=== PATIENT | male | born 1960 | race African-American/Black ===

== ENCOUNTER 2021-01-13 09:07 | Observation (INO) ==
[2021-01-13] MEDS ORDERED: CeFAZolin Syr 2,000MG/20 ML 2,000 MG/20 ML SYRINGE IVPB ONE (09:36)
[2021-01-13] MEDS ORDERED: SODIUM CHLORIDE 0.9% IVPB ONE (09:37)
[2021-01-13] MEDS ORDERED: GENTAMICIN IVPB ONE (09:37)
[2021-01-13] MEDS ORDERED: Ringers Solution, Lactated 1,000 ML IVC SCH ×2 (09:45→10:45)
[2021-01-13] MEDS ORDERED: Ondansetron 4 MG/2 ML VIAL IVP PRN ×2 (10:34→22:23)
[2021-01-13] MEDS ORDERED: *HR* FentaNYL (PF) 100 MCG/2 ML VIAL IVP PRN (10:34)
[2021-01-13] MEDS ORDERED: *HR* FentaNYL (PF) 100 MCG/2 ML VIAL ONE ×2 (10:53→12:34)
[2021-01-13] MEDS ORDERED: *HR* Midazolam HCl 2 MG/2 ML VIAL ONE ×2 (10:54→12:16)
[2021-01-13] MEDS ORDERED: Lidocaine -MPF 2% 2 ML VIAL ONE (10:54)
[2021-01-13] MEDS ORDERED: *HR* Propofol 200 MG/20 ML VIAL IVP ONE (10:54)
[2021-01-13] MEDS ORDERED: Ondansetron 4 MG/2 ML VIAL ONE (10:54)
[2021-01-13] MEDS ORDERED: ROPIVACAINE/PF/NS 0.25% 1 EACH SYRINGE INTRAART ONE (11:37)
[2021-01-13] MEDS ORDERED: Ropivacaine/PF 0.5% 30 ML VIAL ONE (11:37)
[2021-01-13] MEDS ORDERED: Acetaminophen IV 0 MG/0 ML BAG IVPB ONE (11:44)
[2021-01-13] MEDS ORDERED: Vancomycin 1,000 MG VIAL ONE ×3 (11:58→12:45)
[2021-01-13] MEDS ORDERED: Tobramycin Sulf (Sterile) 1.2 GM VIAL ONE ×2 (12:00→12:45)
[2021-01-13] MEDS ORDERED: TOTAL JOINT MIXTURE (100ML) INTRAART ONE (12:05)
[2021-01-13] MEDS ORDERED: Povidone-Iodine 45 ML, Sodium Chloride IRRigation 1,000 ML IR ONE (12:05)
[2021-01-13] MEDS ORDERED: *HR* Rocuronium Bromide 50 MG/5 ML VIAL ONE ×2 (12:38→15:35)
[2021-01-13] MEDS ORDERED: Albumin Human 5% 12.5 GM/250 ML IV.SOLN ONE (12:43)
[2021-01-13] MEDS ORDERED: Tranexamic Acid 1,000 MG/10 ML VIAL ONE (13:03)
[2021-01-13] MEDS ORDERED: Dexmedetomidine HCl 400 MCG/100 ML MLS IVC ONE (13:23)
[2021-01-13] MEDS ORDERED: Lidocaine -MPF 4% 5 ML AMPUL ONE (14:06)
[2021-01-13 15:08] LABS: Source,Synovial Fluid left knee
[2021-01-13] MEDS ORDERED: *HR* Remifentanil 2 MG VIAL IVP ONE (15:14)
[2021-01-13 16:47] LABS: Appearance,Synovial Fluid Hazy (Clear-Hazy); Color,Synovial Fluid Red (Straw)
[2021-01-13] MEDS ORDERED: EPHEDrine 50 MG/ML VIAL ONE (16:56)
[2021-01-13] MEDS ORDERED: *HR* HYDROmorphone (PF) 1 MG/ML SYRINGE IVP PRN (21:11)
[2021-01-13] MEDS ORDERED: *HR* HYDROmorphone 2 MG/ML SYRINGE IVP ONE (21:12)
[2021-01-13] MEDS: *HR* FentaNYL (PF) 100 MCG/2 ML VIAL IVP PRN ×2 (21:20→21:25)
[2021-01-13] MEDS ORDERED: Naloxone 0.4 MG/ML INJ IVP PRN (22:23)
[2021-01-13] MEDS ORDERED: *HR* Promethazine 25 MG/ML VIAL IM PRN (22:23)
[2021-01-13] MEDS ORDERED: MOM Conc 10 ML UD.LIQ PO PRN (22:23)
[2021-01-13] MEDS ORDERED: Sennosides 8.6 MG TABLET PO PRN (22:23)
[2021-01-13] MEDS: *HR* OxyCODONE Immed Rel 5 MG TABLET PO PRN (22:55)
[2021-01-13] MEDS: carvediloL 25 MG TABLET PO SCH (23:12)
[2021-01-14] MEDS: Ketorolac 30 MG/ML VIAL IVP SCH ×3 (00:13→13:12)
[2021-01-14] MEDS: CeFAZolin 2 GM/120 ML BAG IVPB SCH ×3 (00:14→16:37)
[2021-01-14 01:38] LABS: Hematocrit 38.4 % (37.5-50.1); Hemoglobin 12.6 g/dL (12.9-16.9); Mean Corpuscular HGB Conc 32.8 g/dL (31.6-35.5); Mean Corpuscular Hemoglobin 31.1 pg (28.0-33.3); Mean Corpuscular Volume 94.8 fL (83.0-100.0); Red Blood Count 4.05 M/mcL (4.19-5.50); Segmented Neutrophils % 83.1 %
[2021-01-14 01:40] LABS: Basophils % 0.1 %; Immature Granulocytes % 0.4 % (0-4); Immature Platelets 4.7 % (1.1-6.1); Lymphocytes # 1.4 K/mcL (0.6-4.6); Lymphocytes % 13.6 %; Mean Platelet Volume 11.1 fL (9.4-12.4); Monocytes # 0.3 K/mcL (0.0-1.3); Monocytes % 2.8 %; Neutrophils # 8.4 K/mcL (1.6-8.9); Platelet Count 100 K/mcL (140-400); White Blood Count 10.1 K/mcL (4.3-11.1)
[2021-01-14 01:55] LABS: Calcium 7.9 mg/dL (8.6-10.3); Potassium 4.2 mEq/L (3.5-5.1)
[2021-01-14] MEDS: *HR* OxyCODONE Immed Rel 5 MG TABLET PO PRN ×5 (02:51→21:48)
[2021-01-14] MEDS: Ringers Solution, Lactated 1,000 ML IVC SCH ×2 (02:51→13:32)
[2021-01-14] MEDS: Multivit/Ca/Min/Fe/FA 1 TAB TABLET PO SCH (08:26)
[2021-01-14] MEDS: Ascorbic Acid 500 MG TABLET PO SCH ×2 (08:26→16:37)
[2021-01-14] MEDS: Furosemide 20 MG TABLET PO SCH (08:26)
[2021-01-14] MEDS: lisinopriL 5 MG TABLET PO SCH (08:26)
[2021-01-14] MEDS: amLODIPine 5 MG TABLET PO SCH (08:26)
[2021-01-14] MEDS: carvediloL 25 MG TABLET PO SCH ×2 (08:26→16:37)
[2021-01-14] MEDS: *HR* HYDROmorphone (PF) 1 MG/ML SYRINGE IVP PRN (23:39)
[2021-01-15] MEDS: CeFAZolin 2 GM/120 ML BAG IVPB SCH ×3 (00:27→17:30)
[2021-01-15] MEDS: *HR* OxyCODONE Immed Rel 5 MG TABLET PO PRN ×4 (03:59→22:47)
[2021-01-15] MEDS: *HR* Rivaroxaban 10 MG TABLET PO SCH (05:11)
[2021-01-15] MEDS: Ringers Solution, Lactated 1,000 ML IVC SCH (05:11)
[2021-01-15] MEDS: Ascorbic Acid 500 MG TABLET PO SCH ×2 (07:17→17:04)
[2021-01-15] MEDS: carvediloL 25 MG TABLET PO SCH ×2 (07:17→17:04)
[2021-01-15] MEDS: lisinopriL 5 MG TABLET PO SCH (07:18)
[2021-01-15] MEDS: Furosemide 20 MG TABLET PO SCH (07:18)
[2021-01-15] MEDS: Multivit/Ca/Min/Fe/FA 1 TAB TABLET PO SCH (07:18)
[2021-01-15] MEDS: amLODIPine 5 MG TABLET PO SCH (07:18)
[2021-01-15] MEDS: *HR* HYDROmorphone (PF) 1 MG/ML SYRINGE IVP PRN ×3 (07:18→20:04)
[2021-01-15 09:11] LABS: BUN/Creatinine Ratio 13 (6-26); Blood Urea Nitrogen 17 mg/dL (8-23); Calcium 7.9 mg/dL (8.6-10.3); Carbon Dioxide 29 mEq/L (23-29); Chloride 106 mEq/L (98-107); Glucose 173 mg/dL (70-105); Osmolality,Calculated 294 (280-300); Potassium 3.2 mEq/L (3.5-5.1); Sodium 139 mEq/L (136-145); eGFR For African Americans > 60 (> 60); eGFR For Non-African Americans 57 (> 60)
[2021-01-15 10:13] LABS: Basophils % 0.4 %; Eosinophils # 0.1 K/mcL (0.0-0.6); Eosinophils % 1.5 %; Hematocrit 23.1 % (37.5-50.1); Immature Granulocytes % 0.8 % (0-4); Lymphocytes % 21.3 %; Mean Corpuscular HGB Conc 34.6 g/dL (31.6-35.5); Mean Corpuscular Hemoglobin 31.9 pg (28.0-33.3); Mean Platelet Volume 10.7 fL (9.4-12.4); Monocytes # 0.9 K/mcL (0.0-1.3); Monocytes % 9.5 %; Neutrophils # 6.1 K/mcL (1.6-8.9); Red Blood Count 2.51 M/mcL (4.19-5.50); Red Cell Distribution Width 13.1 % (11.5-14.5); Segmented Neutrophils % 66.5 %; White Blood Count 9.2 K/mcL (4.3-11.1)
[2021-01-15 10:28] LABS: Platelet Count 77 K/mcL (140-400)
[2021-01-16] MEDS: CeFAZolin 2 GM/120 ML BAG IVPB SCH ×2 (00:34→07:54)
[2021-01-16] MEDS: *HR* HYDROmorphone (PF) 1 MG/ML SYRINGE IVP PRN (02:05)
[2021-01-16] MEDS: *HR* Rivaroxaban 10 MG TABLET PO SCH (06:06)
[2021-01-16 06:27] LABS: Basophils % 0.4 %; Eosinophils # 0.1 K/mcL (0.0-0.6); Eosinophils % 1.2 %; Hematocrit 22.8 % (37.5-50.1); Hemoglobin 7.7 g/dL (12.9-16.9); Immature Granulocytes % 0.9 % (0-4); Immature Platelets 3.5 % (1.1-6.1); Lymphocytes # 2.4 K/mcL (0.6-4.6); Lymphocytes % 21.6 %; Mean Corpuscular HGB Conc 33.8 g/dL (31.6-35.5); Mean Corpuscular Hemoglobin 31.7 pg (28.0-33.3); Mean Corpuscular Volume 93.8 fL (83.0-100.0); Mean Platelet Volume 10.4 fL (9.4-12.4); Monocytes # 1.1 K/mcL (0.0-1.3); Monocytes % 9.7 %; Neutrophils # 7.4 K/mcL (1.6-8.9); Platelet Count 89 K/mcL (140-400); Red Blood Count 2.43 M/mcL (4.19-5.50); Red Cell Distribution Width 12.8 % (11.5-14.5); Segmented Neutrophils % 66.2 %; White Blood Count 11.2 K/mcL (4.3-11.1)
[2021-01-16 06:43] LABS: BUN/Creatinine Ratio 12 (6-26); Blood Urea Nitrogen 13 mg/dL (8-23); Calcium 8.2 mg/dL (8.6-10.3); Carbon Dioxide 30 mEq/L (23-29); Chloride 103 mEq/L (98-107); Glucose 164 mg/dL (70-105); Osmolality,Calculated 288 (280-300); Potassium 3.1 mEq/L (3.5-5.1); Sodium 137 mEq/L (136-145); eGFR For African Americans > 60 (> 60); eGFR For Non-African Americans > 60 (> 60)
[2021-01-16] MEDS: Furosemide 20 MG TABLET PO SCH (07:54)
[2021-01-16] MEDS: amLODIPine 5 MG TABLET PO SCH (07:54)
[2021-01-16] MEDS: lisinopriL 5 MG TABLET PO SCH (07:54)
[2021-01-16] MEDS: carvediloL 25 MG TABLET PO SCH (07:54)
[2021-01-16] MEDS: Ascorbic Acid 500 MG TABLET PO SCH (07:54)
[2021-01-16] MEDS: Multivit/Ca/Min/Fe/FA 1 TAB TABLET PO SCH (07:54)
[2021-01-16] MEDS: *HR* OxyCODONE Immed Rel 5 MG TABLET PO PRN ×2 (07:54→16:11)
[2021-01-16 12:31] LABS: % Iron Saturation 12 % (20-55); Iron 39 mcg/dL (65-175); Transferrin 226 mg/dL (203-362)
[2021-01-16 12:50] LABS: Ferritin 259 ng/mL (20-250)
[2021-01-16 12:55] LABS: Folate 19.4 ng/mL (3.0-16.0)
[2021-01-16 15:48] VITALS: BP 134/77
== END 2021-01-16 17:00 | disposition home health service (06) ==
LOC: 3NENU 09:07 → SAMDAY 09:07 → 3NENU 22:21
PROVIDERS: ADMIT Orthopaedic Surgery; ATTEND Orthopaedic Surgery

== ENCOUNTER 2021-07-05 13:22 | Inpatient (IN) ==
[2021-07-05] MEDS ORDERED: Ondansetron 4 MG/2 ML VIAL IVP ONE (13:27)
[2021-07-05] MEDS ORDERED: *HR* FentaNYL (PF) 100 MCG/2 ML VIAL IVP ONE (13:27)
[2021-07-05] MEDS ORDERED: *HR* HYDROmorphone (PF) 1 MG/ML SYRINGE IVP ONE (13:45)
[2021-07-05 15:26] LABS: Basophils % 0.6 %; Eosinophils # 0.1 K/mcL (0.0-0.6); Eosinophils % 2.2 %; Hemoglobin 13.5 g/dL (12.9-16.9); Immature Granulocytes % 0.5 % (0-4); Lymphocytes # 1.7 K/mcL (0.6-4.6); Lymphocytes % 26.8 %; Mean Corpuscular HGB Conc 32.9 g/dL (31.6-35.5); Mean Corpuscular Hemoglobin 29.5 pg (28.0-33.3); Mean Corpuscular Volume 89.5 fL (83.0-100.0); Mean Platelet Volume 10.7 fL (9.4-12.4); Monocytes # 0.6 K/mcL (0.0-1.3); Monocytes % 9.5 %; Neutrophils # 3.9 K/mcL (1.6-8.9); Platelet Count 121 K/mcL (140-400); Red Blood Count 4.58 M/mcL (4.19-5.50); Segmented Neutrophils % 60.4 %; White Blood Count 6.5 K/mcL (4.3-11.1)
[2021-07-05 15:46] LABS: BUN/Creatinine Ratio 8 (6-26); Blood Urea Nitrogen 11 mg/dL (8-23); Calcium 8.7 mg/dL (8.6-10.3); Carbon Dioxide 24 mEq/L (23-29); Chloride 108 mEq/L (98-107); Glucose 150 mg/dL (70-105); Osmolality,Calculated 294 (280-300); Potassium 3.1 mEq/L (3.5-5.1); Sodium 141 mEq/L (136-145); eGFR For African Americans > 60 (> 60); eGFR For Non-African Americans 51 (> 60)
[2021-07-05] MEDS ORDERED: Ondansetron 4 MG/2 ML VIAL IVP PRN (15:52)
[2021-07-05] MEDS ORDERED: Naloxone 0.4 MG/ML INJ IVP PRN (15:52)
[2021-07-05] MEDS ORDERED: 0.9 % Sodium Chloride 1,000 ML IVC SCH (16:00)
[2021-07-05] MEDS: Morphine Sulfate 2 MG/ML SYRINGE IVP PRN (20:03)
[2021-07-05] MEDS: Melatonin 3 MG TABLET PO PRN (21:17)
[2021-07-06 02:17] LABS: INR 1.4; Prothrombin Time 15.5 Seconds (9.4-12.1)
[2021-07-06 02:18] LABS: Basophils % 0.4 %; Eosinophils # 0.1 K/mcL (0.0-0.6); Eosinophils % 1.3 %; Hemoglobin 11.8 g/dL (12.9-16.9); Immature Granulocytes % 0.4 % (0-4); Lymphocytes # 2.1 K/mcL (0.6-4.6); Lymphocytes % 23.1 %; Mean Corpuscular HGB Conc 32.8 g/dL (31.6-35.5); Mean Corpuscular Hemoglobin 30.2 pg (28.0-33.3); Mean Corpuscular Volume 92.1 fL (83.0-100.0); Mean Platelet Volume 10.4 fL (9.4-12.4); Monocytes # 0.7 K/mcL (0.0-1.3); Monocytes % 7.5 %; Platelet Count 105 K/mcL (140-400); Red Blood Count 3.91 M/mcL (4.19-5.50); Red Cell Distribution Width 14.9 % (11.5-14.5); Segmented Neutrophils % 67.3 %
[2021-07-06 02:36] LABS: BUN/Creatinine Ratio 9 (6-26); Blood Urea Nitrogen 11 mg/dL (8-23); Carbon Dioxide 25 mEq/L (23-29); Chloride 107 mEq/L (98-107); Glucose 171 mg/dL (70-105); Magnesium 1.7 mg/dL (1.6-2.6); Osmolality,Calculated 291 (280-300); Potassium 3.5 mEq/L (3.5-5.1); Sodium 139 mEq/L (136-145); eGFR For African Americans > 60 (> 60); eGFR For Non-African Americans 57 (> 60)
[2021-07-06] MEDS: Morphine Sulfate 2 MG/ML SYRINGE IVP PRN (09:17)
[2021-07-06] MEDS: amLODIPine 5 MG TABLET PO SCH (09:18)
[2021-07-06] MEDS: carvediloL 25 MG TABLET PO SCH ×2 (09:18→21:20)
[2021-07-06] MEDS ORDERED: Bupivacaine-MPF 0.25% 10 ML VIAL ONE (11:13)
[2021-07-06] MEDS ORDERED: Ondansetron 4 MG/2 ML VIAL IVP PRN (11:43)
[2021-07-06] MEDS ORDERED: *HR* Meperidine 25 MG/ML SYRINGE IVP PRN (11:43)
[2021-07-06] MEDS ORDERED: *HR* HYDROmorphone PF 0.5 MG/0.5 ML SYRINGE IVP PRN (11:43)
[2021-07-06] MEDS ORDERED: *HR* Succinylcholine 200 MG/10 ML VIAL IVP ONE (11:49)
[2021-07-06] MEDS ORDERED: Lidocaine -MPF 2% 2 ML VIAL ONE (11:49)
[2021-07-06] MEDS ORDERED: *HR* Propofol 200 MG/20 ML VIAL IVP ONE (11:49)
[2021-07-06] MEDS ORDERED: Ondansetron 4 MG/2 ML VIAL ONE (11:49)
[2021-07-06] MEDS ORDERED: Lidocaine HCL 4 ML Topical Solution (Laryng-O-Jet Kit Sterile Pak) TP ONE (11:49)
[2021-07-06] MEDS ORDERED: *HR* FentaNYL (PF) 100 MCG/2 ML VIAL ONE ×2 (11:49→17:51)
[2021-07-06] MEDS ORDERED: *HR* Midazolam HCl 2 MG/2 ML VIAL ONE (11:49)
[2021-07-06] MEDS ORDERED: Ropivacaine/PF 0.5% 30 ML VIAL ONE (12:07)
[2021-07-06] MEDS ORDERED: TOTAL JOINT MIXTURE (100ML) INTRAART ONE (12:15)
[2021-07-06] MEDS ORDERED: Povidone-Iodine 45 ML, Sodium Chloride IRRigation 1,000 ML IR ONE (12:15)
[2021-07-06] MEDS ORDERED: *HR* LORazepam 2 MG/ML VIAL IVP PRN (12:24)
[2021-07-06] MEDS ORDERED: *HR* Heparin 5,000 UNIT/ML VIAL ONE (12:27)
[2021-07-06] MEDS ORDERED: Albumin Human 5% 25.0 GM/500 ML IV.SOLN ONE ×2 (15:27→17:03)
[2021-07-06] MEDS ORDERED: *HR* Rocuronium Bromide 50 MG/5 ML VIAL ONE (16:57)
[2021-07-06] MEDS ORDERED: EPHEDrine 50 MG/ML VIAL ONE (17:15)
[2021-07-06] MEDS ORDERED: Vancomycin 1,000 MG VIAL ONE (17:23)
[2021-07-06] MEDS: CeFAZolin 2 GM/120 ML BAG IVPB SCH (23:00)
[2021-07-07] MEDS: Melatonin 3 MG TABLET PO PRN (03:15)
[2021-07-07 03:40] LABS: Basophils % 0.2 %; Hematocrit 26.3 % (37.5-50.1); Immature Granulocytes % 0.8 % (0-4); Lymphocytes # 1.4 K/mcL (0.6-4.6); Lymphocytes % 11.4 %; Mean Corpuscular HGB Conc 33.8 g/dL (31.6-35.5); Mean Corpuscular Hemoglobin 30.9 pg (28.0-33.3); Mean Corpuscular Volume 91.3 fL (83.0-100.0); Mean Platelet Volume 11.3 fL (9.4-12.4); Monocytes # 0.7 K/mcL (0.0-1.3); Monocytes % 5.7 %; Neutrophils # 9.8 K/mcL (1.6-8.9); Red Blood Count 2.88 M/mcL (4.19-5.50); Red Cell Distribution Width 14.7 % (11.5-14.5); Segmented Neutrophils % 81.9 %
[2021-07-07 03:41] LABS: Hemoglobin 8.9 g/dL (12.9-16.9); Platelet Count 78 K/mcL (140-400)
[2021-07-07 03:49] LABS: Potassium 4.3 mEq/L (3.5-5.1)
[2021-07-07] MEDS ORDERED: 0.9 % Sodium Chloride 1,000 ML IVC SCH (07:00)
[2021-07-07] MEDS: Vitamin B Complex/Vit C/Vit E 1 EACH TABLET PO SCH (07:23)
[2021-07-07] MEDS: Thiamine (B-1) 100 MG TABLET PO SCH (07:23)
[2021-07-07] MEDS: amLODIPine 5 MG TABLET PO SCH (07:23)
[2021-07-07] MEDS: Folic Acid 1 MG TABLET PO SCH (07:23)
[2021-07-07] MEDS: CeFAZolin 2 GM/120 ML BAG IVPB SCH ×2 (07:24→16:40)
[2021-07-07] MEDS ORDERED: Furosemide 20 MG TABLET PO SCH (09:00)
[2021-07-07] MEDS: *HR* LORazepam 2 MG/ML VIAL IVP PRN ×2 (10:14→20:27)
[2021-07-07 12:37] LABS: Hematocrit 27.9 % (37.5-50.1); Hemoglobin 9.2 g/dL (12.9-16.9)
[2021-07-07 15:50] LABS: Bacteria,Urine Few per hpf (None-Few); Bilirubin,Urine Negative (Negative); Blood,Urine Small (Negative); Clarity,Urine Clear (Clear); Color,Urine Yellow (Yellow); Glucose,Urine (UA) Normal (Normal); Ketones,Urine Negative (Negative); Leukocyte Esterase,Urine Small (Negative); Mucus,Urine Few per lpf (None-Few); Nitrite,Urine Negative (Negative); Protein,Urine Trace mg/dL (Neg-Trace); RBC,Urine 0-3 per hpf (0-3); Squamous Epithelial Cell,Urine Few per hpf (None-Few); Urobilinogen,Urine Normal (Normal); WBC,Urine 0-3 per hpf (0-3)
[2021-07-07] MEDS: carvediloL 25 MG TABLET PO SCH (16:40)
[2021-07-07] MEDS ORDERED: *HR* LORazepam 2 MG/ML VIAL IVP ONE ×2 (17:46→23:56)
[2021-07-07 21:41] LABS: Hematocrit 25.6 % (37.5-50.1); Hemoglobin 8.4 g/dL (12.9-16.9)
[2021-07-08] MEDS: CeFAZolin 2 GM/120 ML BAG IVPB SCH ×4 (00:07→23:55)
[2021-07-08] MEDS: *HR* LORazepam 2 MG/ML VIAL IVP PRN ×5 (01:25→23:52)
[2021-07-08] MEDS ORDERED: *HR* LORazepam 2 MG/ML VIAL IVP ONE (03:34)
[2021-07-08 08:07] LABS: Blood Urea Nitrogen 20 mg/dL (8-23); Calcium 7.7 mg/dL (8.6-10.3); Carbon Dioxide 24 mEq/L (23-29); Chloride 111 mEq/L (98-107); Glucose 130 mg/dL (70-105); Osmolality,Calculated 296 (280-300); Potassium 3.4 mEq/L (3.5-5.1); Sodium 141 mEq/L (136-145)
[2021-07-08 08:12] LABS: % Iron Saturation 7 % (20-55); Iron 20 mcg/dL (65-175); Transferrin 217 mg/dL (203-362)
[2021-07-08 08:21] LABS: Ferritin 128 ng/mL (20-250)
[2021-07-08 08:25] LABS: Immature Granulocytes % 0.8 % (0-4)
[2021-07-08 08:28] LABS: Basophils % 0.3 %; Eosinophils # 0.1 K/mcL (0.0-0.6); Eosinophils % 1.2 %; Hematocrit 22.6 % (37.5-50.1); Hemoglobin 7.4 g/dL (12.9-16.9); Immature Platelets 3.8 % (1.1-6.1); Lymphocytes # 2.5 K/mcL (0.6-4.6); Lymphocytes % 23.8 %; Mean Corpuscular HGB Conc 32.7 g/dL (31.6-35.5); Mean Corpuscular Volume 91.5 fL (83.0-100.0); Mean Platelet Volume 10.7 fL (9.4-12.4); Monocytes % 9.3 %; Neutrophils # 6.7 K/mcL (1.6-8.9); Nucleated Red Blood Cells 0.2 /100 WBC (0); Platelet Count 97 K/mcL (140-400); Red Blood Count 2.47 M/mcL (4.19-5.50); Segmented Neutrophils % 64.6 %; White Blood Count 10.4 K/mcL (4.3-11.1)
[2021-07-08] MEDS: carvediloL 25 MG TABLET PO SCH ×2 (08:34→17:15)
[2021-07-08] MEDS: Vitamin B Complex/Vit C/Vit E 1 EACH TABLET PO SCH (08:36)
[2021-07-08] MEDS: Thiamine (B-1) 100 MG TABLET PO SCH (08:36)
[2021-07-08] MEDS: Folic Acid 1 MG TABLET PO SCH (08:36)
[2021-07-08] MEDS: amLODIPine 5 MG TABLET PO SCH (08:36)
[2021-07-08 08:51] LABS: BUN/Creatinine Ratio 14 (6-26); eGFR For African Americans > 60 (> 60); eGFR For Non-African Americans 51 (> 60)
[2021-07-08] MEDS ORDERED: Potassium Chloride Elixir 20 MEQ/15 ML UDC PO ONE (09:35)
[2021-07-08 09:37] LABS: VBG HCO3 22 mEq/L (21-27); VBG PCO2 32 mmHg (41-51); VBG PH 7.45 pH Units (7.32-7.42); VBG PO2 179 mmHg (25-50)
[2021-07-08] MEDS ORDERED: Iron Sucrose Complex 200 MG in 0.9 % Sodium Chloride 100 ML IVPB SCH (09:45)
[2021-07-08 09:54] LABS: Albumin 2.9 g/dL (3.5-5.7); Albumin/Globulin Ratio 1.4 (1.1-2.2); Bilirubin,Direct 1.1 mg/dL (0.0-0.2); Bilirubin,Indirect 0.7 mg/dL (0.0-1.0); Bilirubin,Total 1.8 mg/dL (0.3-1.0); Globulin 2.1 g/dL (2.4-3.5)
[2021-07-08 14:26] LABS: Hematocrit 21.7 % (37.5-50.1); Hemoglobin 7.3 g/dL (12.9-16.9)
[2021-07-08] MEDS: Thiamine (B-1) 100 MG, Folic Acid 1 MG, MVI, adult with vitamin K 10 ML in 0.9 % Sodi... IVPB SCH (17:17)
[2021-07-08] MEDS ORDERED: Doxycycline 100 MG in 0.9 % Sodium Chloride Mini Bag 100 ML IVPB SCH (18:00)
[2021-07-08 21:31] LABS: Hematocrit 21.9 % (37.5-50.1); Hemoglobin 7.3 g/dL (12.9-16.9)
[2021-07-08] MEDS: Doxycycline 100 MG in 0.9 % Sodium Chloride Mini Bag 100 ML IVPB SCH (23:55)
[2021-07-09] MEDS: CeFAZolin 2 GM/120 ML BAG IVPB SCH ×3 (07:44→23:26)
[2021-07-09] MEDS: carvediloL 25 MG TABLET PO SCH ×2 (07:44→16:10)
[2021-07-09] MEDS: amLODIPine 5 MG TABLET PO SCH (07:45)
[2021-07-09 08:28] LABS: Basophils % 0.2 %; Eosinophils # 0.2 K/mcL (0.0-0.6); Eosinophils % 2.1 %; Hematocrit 22.4 % (37.5-50.1); Hemoglobin 7.2 g/dL (12.9-16.9); Immature Granulocytes % 1.1 % (0-4); Lymphocytes % 22.8 %; Mean Corpuscular HGB Conc 32.1 g/dL (31.6-35.5); Mean Corpuscular Hemoglobin 30.6 pg (28.0-33.3); Mean Corpuscular Volume 95.3 fL (83.0-100.0); Mean Platelet Volume 10.4 fL (9.4-12.4); Monocytes # 0.8 K/mcL (0.0-1.3); Monocytes % 8.8 %; Neutrophils # 5.8 K/mcL (1.6-8.9); Nucleated Red Blood Cells 0.2 /100 WBC (0); Platelet Count 100 K/mcL (140-400); Red Blood Count 2.35 M/mcL (4.19-5.50); Red Cell Distribution Width 15.4 % (11.5-14.5); White Blood Count 8.9 K/mcL (4.3-11.1)
[2021-07-09 08:42] LABS: Calcium 7.8 mg/dL (8.6-10.3); Potassium 3.4 mEq/L (3.5-5.1)
[2021-07-09 09:10] LABS: Hepatitis B Surface Antigen Nonreactive (Nonreactive)
[2021-07-09 09:40] LABS: Hepatitis A Antibody IgM Nonreactive (Nonreactive); Hepatitis B Core IgM Nonreactive (Nonreactive)
[2021-07-09] MEDS ORDERED: Iron Sucrose Complex 200 MG in 0.9 % Sodium Chloride 100 ML IVPB ONE (09:44)
[2021-07-09] MEDS: Doxycycline 100 MG in 0.9 % Sodium Chloride Mini Bag 100 ML IVPB SCH ×2 (09:44→20:02)
[2021-07-09] MEDS ORDERED: Potassium Chloride Elixir 20 MEQ/15 ML UDC PO ONE (09:45)
[2021-07-09] MEDS: Levalbuterol Neb 0.63 MG/3 ML IH SCH ×2 (10:21→21:42)
[2021-07-09 11:04] LABS: Hepatitis C Virus Antibody Reactive (Nonreactive)
[2021-07-09] MEDS: Thiamine (B-1) 100 MG, Folic Acid 1 MG, MVI, adult with vitamin K 10 ML in 0.9 % Sodi... IVPB SCH (17:11)
[2021-07-09] MEDS: *HR* LORazepam 2 MG/ML VIAL IVP PRN (23:26)
[2021-07-10 06:32] LABS: Basophils % 0.5 %; Eosinophils # 0.4 K/mcL (0.0-0.6); Eosinophils % 4.8 %; Hematocrit 23.4 % (37.5-50.1); Hemoglobin 7.4 g/dL (12.9-16.9); Immature Granulocytes % 1.6 % (0-4); Lymphocytes # 1.8 K/mcL (0.6-4.6); Lymphocytes % 21.9 %; Mean Corpuscular HGB Conc 31.6 g/dL (31.6-35.5); Mean Corpuscular Hemoglobin 31.2 pg (28.0-33.3); Mean Corpuscular Volume 98.7 fL (83.0-100.0); Mean Platelet Volume 10.2 fL (9.4-12.4); Monocytes # 0.8 K/mcL (0.0-1.3); Monocytes % 9.9 %; Nucleated Red Blood Cells 0.4 /100 WBC (0); Platelet Count 117 K/mcL (140-400); Red Blood Count 2.37 M/mcL (4.19-5.50); Segmented Neutrophils % 61.3 %; White Blood Count 8.1 K/mcL (4.3-11.1)
[2021-07-10 06:54] LABS: Albumin 2.9 g/dL (3.5-5.7); Albumin/Globulin Ratio 1.4 (1.1-2.2); Bilirubin,Indirect 0.5 mg/dL (0.0-1.0); Bilirubin,Total 1.5 mg/dL (0.3-1.0); Calcium 7.9 mg/dL (8.6-10.3); Globulin 2.1 g/dL (2.4-3.5); Potassium 3.4 mEq/L (3.5-5.1)
[2021-07-10] MEDS ORDERED: Potassium Chloride Elixir 20 MEQ/15 ML UDC PO ONE (07:25)
[2021-07-10] MEDS: amLODIPine 5 MG TABLET PO SCH (08:44)
[2021-07-10] MEDS: carvediloL 25 MG TABLET PO SCH ×2 (08:45→15:11)
[2021-07-10] MEDS: CeFAZolin 2 GM/120 ML BAG IVPB SCH ×2 (08:48→16:35)
[2021-07-10] MEDS: Levalbuterol Neb 0.63 MG/3 ML IH SCH ×4 (09:18→22:02)
[2021-07-10] MEDS: Doxycycline 100 MG in 0.9 % Sodium Chloride Mini Bag 100 ML IVPB SCH ×2 (09:49→20:40)
[2021-07-10] MEDS ORDERED: Sennosides 8.6 MG TABLET PO SCH (14:45)
[2021-07-10] MEDS: Thiamine (B-1) 100 MG, Folic Acid 1 MG, MVI, adult with vitamin K 10 ML in 0.9 % Sodi... IVPB SCH (20:49)
[2021-07-11 01:52] LABS: Basophils % 0.4 %; Eosinophils # 0.3 K/mcL (0.0-0.6); Eosinophils % 4.6 %; Hematocrit 21.9 % (37.5-50.1); Hemoglobin 7.1 g/dL (12.9-16.9); Immature Granulocytes % 1.4 % (0-4); Lymphocytes # 1.5 K/mcL (0.6-4.6); Lymphocytes % 21.6 %; Mean Corpuscular HGB Conc 32.4 g/dL (31.6-35.5); Mean Corpuscular Volume 95.6 fL (83.0-100.0); Mean Platelet Volume 10.7 fL (9.4-12.4); Monocytes # 0.7 K/mcL (0.0-1.3); Monocytes % 10.5 %; Neutrophils # 4.3 K/mcL (1.6-8.9); Platelet Count 128 K/mcL (140-400); Red Blood Count 2.29 M/mcL (4.19-5.50); Red Cell Distribution Width 15.9 % (11.5-14.5); Segmented Neutrophils % 61.5 %
[2021-07-11 02:03] LABS: Alanine Aminotransferase 22 Units/L (7-52); Albumin 2.6 g/dL (3.5-5.7); Albumin/Globulin Ratio 1.1 (1.1-2.2); Alkaline Phosphatase 76 Units/L (34-104); Aspartate Amino Transferase 96 Units/L (13-39); BUN/Creatinine Ratio 15 (6-26); Bilirubin,Direct 0.8 mg/dL (0.0-0.2); Bilirubin,Indirect 0.6 mg/dL (0.0-1.0); Bilirubin,Total 1.4 mg/dL (0.3-1.0); Blood Urea Nitrogen 19 mg/dL (8-23); Calcium 7.7 mg/dL (8.6-10.3); Carbon Dioxide 22 mEq/L (23-29); Chloride 113 mEq/L (98-107); Globulin 2.4 g/dL (2.4-3.5); Glucose 129 mg/dL (70-105); Osmolality,Calculated 296 (280-300); Potassium 3.4 mEq/L (3.5-5.1); Sodium 141 mEq/L (136-145); eGFR For African Americans > 60 (> 60); eGFR For Non-African Americans 56 (> 60)
[2021-07-11] MEDS: CeFAZolin 2 GM/120 ML BAG IVPB SCH ×3 (04:29→21:36)
[2021-07-11] MEDS: Levalbuterol Neb 0.63 MG/3 ML IH SCH ×4 (04:37→21:48)
[2021-07-11] MEDS ORDERED: Potassium Chloride Elixir 20 MEQ/15 ML UDC PO ONE (07:00)
[2021-07-11] MEDS: Doxycycline 100 MG in 0.9 % Sodium Chloride Mini Bag 100 ML IVPB SCH ×2 (08:54→22:45)
[2021-07-11] MEDS: amLODIPine 5 MG TABLET PO SCH (08:56)
[2021-07-11] MEDS: carvediloL 25 MG TABLET PO SCH ×2 (08:56→17:04)
[2021-07-11] MEDS: Multivit/Ca/Min/Fe/FA 1 TAB TABLET PO SCH (08:56)
[2021-07-11] MEDS: Folic Acid 1 MG TABLET PO SCH (08:56)
[2021-07-11] MEDS: Thiamine (B-1) 100 MG TABLET PO SCH (08:56)
[2021-07-11] MEDS: Furosemide 20 MG TABLET PO SCH ×2 (08:57→10:28)
[2021-07-11] MEDS: Aspirin Enteric Coated 325 MG Tablet PO SCH ×2 (08:57→10:28)
[2021-07-11] MEDS ORDERED: Iron Sucrose Complex 200 MG in 0.9 % Sodium Chloride 100 ML IVPB SCH (09:00)
[2021-07-11 13:18] LABS: Hemoglobin 8.5 g/dL (12.9-16.9)
[2021-07-12] MEDS: CeFAZolin 2 GM/120 ML BAG IVPB SCH ×3 (03:54→20:13)
[2021-07-12] MEDS: Levalbuterol Neb 0.63 MG/3 ML IH SCH ×4 (04:11→22:38)
[2021-07-12 04:55] LABS: Basophils % 0.2 %; Eosinophils # 0.3 K/mcL (0.0-0.6); Eosinophils % 4.2 %; Hematocrit 22.3 % (37.5-50.1); Hemoglobin 7.3 g/dL (12.9-16.9); Immature Granulocytes % 1.7 % (0-4); Lymphocytes # 1.6 K/mcL (0.6-4.6); Lymphocytes % 24.2 %; Mean Corpuscular HGB Conc 32.7 g/dL (31.6-35.5); Mean Corpuscular Hemoglobin 31.9 pg (28.0-33.3); Mean Corpuscular Volume 97.4 fL (83.0-100.0); Mean Platelet Volume 10.3 fL (9.4-12.4); Monocytes # 0.6 K/mcL (0.0-1.3); Monocytes % 9.4 %; Platelet Count 130 K/mcL (140-400); Red Blood Count 2.29 M/mcL (4.19-5.50); Red Cell Distribution Width 16.6 % (11.5-14.5); Segmented Neutrophils % 60.3 %; White Blood Count 6.6 K/mcL (4.3-11.1)
[2021-07-12 05:18] LABS: BUN/Creatinine Ratio 15 (6-26); Blood Urea Nitrogen 19 mg/dL (8-23); Calcium 7.7 mg/dL (8.6-10.3); Carbon Dioxide 22 mEq/L (23-29); Chloride 111 mEq/L (98-107); Glucose 105 mg/dL (70-105); Osmolality,Calculated 295 (280-300); Potassium 3.4 mEq/L (3.5-5.1); Sodium 141 mEq/L (136-145); eGFR For African Americans > 60 (> 60); eGFR For Non-African Americans 57 (> 60)
[2021-07-12 05:19] LABS: Albumin 2.7 g/dL (3.5-5.7); Albumin/Globulin Ratio 1.3 (1.1-2.2); Bilirubin,Direct 0.9 mg/dL (0.0-0.2); Bilirubin,Indirect 0.6 mg/dL (0.0-1.0); Bilirubin,Total 1.5 mg/dL (0.3-1.0); Globulin 2.1 g/dL (2.4-3.5); Total Protein 4.8 g/dL (6.4-8.9)
[2021-07-12 05:51] LABS: Anisocytosis 2+ (Not Present); Microcytosis Present (Not Present); Platelet Estimate Slight Decrease (Normal)
[2021-07-12] MEDS: carvediloL 25 MG TABLET PO SCH ×2 (07:46→17:46)
[2021-07-12] MEDS: amLODIPine 5 MG TABLET PO SCH (07:47)
[2021-07-12] MEDS: Folic Acid 1 MG TABLET PO SCH (07:47)
[2021-07-12] MEDS: Thiamine (B-1) 100 MG TABLET PO SCH (07:47)
[2021-07-12] MEDS: Multivit/Ca/Min/Fe/FA 1 TAB TABLET PO SCH (07:47)
[2021-07-12] MEDS: Aspirin Enteric Coated 325 MG Tablet PO SCH (07:47)
[2021-07-12] MEDS: Furosemide 20 MG TABLET PO SCH (07:47)
[2021-07-12] MEDS: Doxycycline 100 MG in 0.9 % Sodium Chloride Mini Bag 100 ML IVPB SCH ×2 (07:48→21:03)
[2021-07-13] MEDS: CeFAZolin 2 GM/120 ML BAG IVPB SCH ×2 (03:04→10:58)
[2021-07-13] MEDS: Levalbuterol Neb 0.63 MG/3 ML IH SCH ×4 (04:29→21:20)
[2021-07-13] MEDS ORDERED: Potassium Chloride Elixir 20 MEQ/15 ML UDC PO ONE (08:26)
[2021-07-13] MEDS: Aspirin Enteric Coated 325 MG Tablet PO SCH (09:19)
[2021-07-13] MEDS: Folic Acid 1 MG TABLET PO SCH (09:19)
[2021-07-13] MEDS: Multivit/Ca/Min/Fe/FA 1 TAB TABLET PO SCH (09:20)
[2021-07-13] MEDS: carvediloL 25 MG TABLET PO SCH ×2 (09:20→17:58)
[2021-07-13] MEDS: Thiamine (B-1) 100 MG TABLET PO SCH (09:20)
[2021-07-13] MEDS: Furosemide 20 MG TABLET PO SCH (09:21)
[2021-07-13] MEDS: Doxycycline 100 MG in 0.9 % Sodium Chloride Mini Bag 100 ML IVPB SCH ×2 (09:22→21:14)
[2021-07-13] MEDS: amLODIPine 5 MG TABLET PO SCH (09:22)
[2021-07-13 13:36] LABS: Basophils % 0.4 %; Eosinophils # 0.3 K/mcL (0.0-0.6); Eosinophils % 3.9 %; Hematocrit 26.5 % (37.5-50.1); Hemoglobin 8.8 g/dL (12.9-16.9); Immature Granulocytes % 2.1 % (0-4); Lymphocytes # 1.4 K/mcL (0.6-4.6); Lymphocytes % 17.1 %; Mean Corpuscular HGB Conc 33.2 g/dL (31.6-35.5); Mean Corpuscular Hemoglobin 32.2 pg (28.0-33.3); Mean Corpuscular Volume 97.1 fL (83.0-100.0); Mean Platelet Volume 10.2 fL (9.4-12.4); Monocytes # 0.6 K/mcL (0.0-1.3); Monocytes % 6.9 %; Neutrophils # 5.6 K/mcL (1.6-8.9); Platelet Count 183 K/mcL (140-400); Red Blood Count 2.73 M/mcL (4.19-5.50); Red Cell Distribution Width 17.4 % (11.5-14.5); Segmented Neutrophils % 69.6 %
[2021-07-13 14:00] LABS: BUN/Creatinine Ratio 13 (6-26); Blood Urea Nitrogen 16 mg/dL (8-23); Calcium 8.2 mg/dL (8.6-10.3); Carbon Dioxide 21 mEq/L (23-29); Chloride 110 mEq/L (98-107); Glucose 204 mg/dL (70-105); Osmolality,Calculated 295 (280-300); Potassium 4.1 mEq/L (3.5-5.1); Sodium 139 mEq/L (136-145); eGFR For African Americans > 60 (> 60); eGFR For Non-African Americans > 60 (> 60)
[2021-07-13] MEDS: Melatonin 3 MG TABLET PO PRN (21:21)
[2021-07-14] MEDS: Levalbuterol Neb 0.63 MG/3 ML IH SCH ×2 (04:32→12:03)
[2021-07-14 07:51] VITALS: TEMP 98.1
[2021-07-14] MEDS: Multivit/Ca/Min/Fe/FA 1 TAB TABLET PO SCH (09:25)
[2021-07-14] MEDS: Thiamine (B-1) 100 MG TABLET PO SCH (09:25)
[2021-07-14] MEDS: amLODIPine 5 MG TABLET PO SCH (09:25)
[2021-07-14] MEDS: carvediloL 25 MG TABLET PO SCH (09:25)
[2021-07-14] MEDS: Furosemide 20 MG TABLET PO SCH (09:25)
[2021-07-14] MEDS: Aspirin Enteric Coated 325 MG Tablet PO SCH (09:26)
[2021-07-14] MEDS: Doxycycline 100 MG in 0.9 % Sodium Chloride Mini Bag 100 ML IVPB SCH (09:26)
[2021-07-14] MEDS: Folic Acid 1 MG TABLET PO SCH (09:26)
[2021-07-14 12:15] VITALS: BP 130/71; PULSE 64
[2021-07-14 14:34] VITALS: O2SAT 95
== END 2021-07-14 15:54 | DRG 308 ==
LOC: 3NENU 13:22 → EMEROOARM 13:22 → 3NENU 16:35 → SUATTDRO 07-07 16:14
PROVIDERS: ADMIT Internal Medicine; ATTEND Hospitalist

== ENCOUNTER 2021-07-19 19:17 | Inpatient (IN) ==
[2021-07-19] MEDS ORDERED: Haloperidol Lactate 5 MG/ML VIAL IM ONE (21:37)
[2021-07-19] MEDS ORDERED: *HR* LORazepam 2 MG/ML VIAL IM ONE ×2 (21:37→22:45)
[2021-07-19] MEDS ORDERED: *HR* LORazepam 2 MG/ML VIAL ONE (22:26)
[2021-07-19] MEDS ORDERED: *HR* LORazepam 2 MG/ML VIAL IVP ONE ×2 (22:31→23:41)
[2021-07-19] MEDS ORDERED: OLANZapine 10 MG VIAL IVP ONE (23:10)
[2021-07-19 23:19] LABS: Bilirubin,Urine Negative (Negative); Blood,Urine Large (Negative); Clarity,Urine Turbid (Clear); Color,Urine Yellow (Yellow); Glucose,Urine (UA) Normal (Normal); Hyaline Casts,Urine Few per lpf (None Seen); Ketones,Urine Negative (Negative); Leukocyte Esterase,Urine Trace (Negative); Mucus,Urine Few per lpf (None-Few); Nitrite,Urine Negative (Negative); Protein,Urine Trace mg/dL (Neg-Trace); RBC,Urine TNTC per hpf (0-3); Specific Gravity,Urine 1.017 (1.010-1.025); Squamous Epithelial Cell,Urine Few per hpf (None-Few)
[2021-07-19 23:30] LABS: VBG HCO3 22 mEq/L (21-27); VBG PCO2 32 mmHg (41-51); VBG PH 7.44 pH Units (7.32-7.42); VBG PO2 96 mmHg (25-50)
[2021-07-19] MEDS ORDERED: OLANZapine 10 MG VIAL IM ONE (23:30)
[2021-07-19] MEDS ORDERED: *HR* Water for inj. (sterile) Vial 10 ML IM ONE (23:30)
[2021-07-19 23:37] LABS: Basophils % 0.2 %; Eosinophils # 0.1 K/mcL (0.0-0.6); Eosinophils % 0.4 %; Hematocrit 27.1 % (37.5-50.1); Hemoglobin 8.7 g/dL (12.9-16.9); Immature Granulocytes % 0.6 % (0-4); Lymphocytes # 2.6 K/mcL (0.6-4.6); Lymphocytes % 14.6 %; Mean Corpuscular HGB Conc 32.1 g/dL (31.6-35.5); Mean Corpuscular Hemoglobin 31.8 pg (28.0-33.3); Mean Corpuscular Volume 98.9 fL (83.0-100.0); Monocytes # 1.4 K/mcL (0.0-1.3); Neutrophils # 13.6 K/mcL (1.6-8.9); Platelet Count 238 K/mcL (140-400); Red Blood Count 2.74 M/mcL (4.19-5.50); Red Cell Distribution Width 18.1 % (11.5-14.5); Segmented Neutrophils % 76.2 %; White Blood Count 17.9 K/mcL (4.3-11.1)
[2021-07-19 23:56] LABS: Alanine Aminotransferase 25 Units/L (7-52); Albumin 3.2 g/dL (3.5-5.7); Alkaline Phosphatase 185 Units/L (34-104); Aspartate Amino Transferase 71 Units/L (13-39); BUN/Creatinine Ratio 16 (6-26); Bilirubin,Indirect 0.9 mg/dL (0.0-1.0); Bilirubin,Total 2.9 mg/dL (0.3-1.0); Blood Urea Nitrogen 28 mg/dL (8-23); Calcium 8.2 mg/dL (8.6-10.3); Carbon Dioxide 20 mEq/L (23-29); Chloride 104 mEq/L (98-107); Globulin 3.1 g/dL (2.4-3.5); Glucose 144 mg/dL (70-105); Lipase 22 Units/L (11-82); Magnesium 1.9 mg/dL (1.6-2.6); Osmolality,Calculated 292 (280-300); Potassium 4.4 mEq/L (3.5-5.1); Sodium 137 mEq/L (136-145); Total Protein 6.3 g/dL (6.4-8.9); eGFR For African Americans 47 (> 60); eGFR For Non-African Americans 39 (> 60)
[2021-07-19 23:57] LABS: Troponin I < 0.03 ng/mL (< 0.04)
[2021-07-19 23:59] LABS: Influenza A PCR Negative (Negative); Influenza B PCR Negative (Negative); Resp. Syncytial Virus PCR Negative (Negative)
[2021-07-20] MEDS ORDERED: 0.9 % Sodium Chloride 1,000 ML IVC ONE (00:03)
[2021-07-20 00:06] LABS: SARS-CoV-2 by PCR (In House) Negative (Negative)
[2021-07-20 00:10] LABS: Thyroid Stimulating Hormone 3.207 mcIU/mL (0.340-5.600)
[2021-07-20] MEDS ORDERED: Piperacillin/Tazobactam 3.375 GM in Water for inj. (sterile) 20 ML IVP ONE (00:25)
[2021-07-20] MEDS ORDERED: Isovue-370 500 ML BOTTLE IVP ONE ×2 (00:26→00:27)
[2021-07-20] MEDS ORDERED: Vancomycin 1,500 MG/265 ML IV.SOLN IVPB ONE (01:00)
[2021-07-20] MEDS ORDERED: Thiamine (B-1) 200 MG in 0.9 % Sodium Chloride 50 ML IVPB STA (01:38)
[2021-07-20] MEDS ORDERED: *HR* LORazepam 2 MG/ML VIAL IVP PRN ×4 (01:38→06:22)
[2021-07-20] MEDS ORDERED: Folic Acid 1 MG in 0.9 % Sodium Chloride 50 ML IVPB STA (01:38)
[2021-07-20] MEDS ORDERED: Naloxone 0.4 MG/ML INJ IVP PRN (05:40)
[2021-07-20] MEDS ORDERED: Ondansetron 4 MG/2 ML VIAL IVP PRN (05:40)
[2021-07-20] MEDS ORDERED: 0.9 % Sodium Chloride 1,000 ML IVC SCH (05:45)
[2021-07-20] MEDS ORDERED: Cefepime HCl 2,000 MG in 0.9 % Sodium Chloride Mini Bag 100 ML IVPB SCH ×2 (08:00→13:00)
[2021-07-20] MEDS ORDERED: Acyclovir 1,000 MG in D5% in Water 250 ML IVPB SCH (08:00)
[2021-07-20] MEDS ORDERED: Piperacillin/Tazobactam 3.375 GM in 0.9 % Sodium Chloride Mini Bag 100 ML IVPB SCH (08:00)
[2021-07-20] MEDS ORDERED: *HR* LORazepam 2 MG/ML VIAL IVP ONE ×3 (08:48→11:16)
[2021-07-20 11:24] LABS: Hematocrit 30.4 % (37.5-50.1); Hemoglobin 9.2 g/dL (12.9-16.9); Mean Corpuscular HGB Conc 30.3 g/dL (31.6-35.5); Mean Corpuscular Hemoglobin 30.8 pg (28.0-33.3); Mean Corpuscular Volume 101.7 fL (83.0-100.0); Mean Platelet Volume 9.6 fL (9.4-12.4); Platelet Count 207 K/mcL (140-400); Red Blood Count 2.99 M/mcL (4.19-5.50); Red Cell Distribution Width 18.2 % (11.5-14.5); White Blood Count 12.7 K/mcL (4.3-11.1)
[2021-07-20 11:37] LABS: INR 1.4; Prothrombin Time 16.4 Seconds (9.4-12.1)
[2021-07-20 11:40] LABS: Activated Partial Thrombo Time 36.2 Seconds (26.0-36.0)
[2021-07-20 11:43] LABS: Albumin 3.3 g/dL (3.5-5.7); Albumin/Globulin Ratio 1.1 (1.1-2.2); Bilirubin,Total 2.7 mg/dL (0.3-1.0); Calcium 8.3 mg/dL (8.6-10.3); Potassium 4.1 mEq/L (3.5-5.1); Total Protein 6.3 g/dL (6.4-8.9)
[2021-07-20] MEDS: Ampicillin 2,000 MG in 0.9 % Sodium Chloride Mini Bag 100 ML IVPB SCH ×4 (12:33→20:25)
[2021-07-20] MEDS ORDERED: Haloperidol Lactate 5 MG/ML VIAL IVP ONE (12:50)
[2021-07-20] MEDS: Acyclovir 700 MG in D5% in Water 250 ML IVPB SCH (14:53)
[2021-07-20] MEDS ORDERED: Thiamine (B-1) 100 MG, Folic Acid 1 MG, MVI, adult with vitamin K 10 ML in 0.9 % Sodi... IVPB SCH (18:00)
[2021-07-21] MEDS: Ampicillin 2,000 MG in 0.9 % Sodium Chloride Mini Bag 100 ML IVPB SCH ×3 (00:43→07:34)
[2021-07-21] MEDS: Acyclovir 700 MG in D5% in Water 250 ML IVPB SCH (00:48)
[2021-07-21] MEDS ORDERED: Cefepime HCl 2,000 MG in 0.9 % Sodium Chloride Mini Bag 100 ML IVPB SCH (01:00)
[2021-07-21] MEDS ORDERED: Vancomycin 1,500 MG/265 ML IV.SOLN IVPB SCH (02:00)
[2021-07-21 06:43] LABS: Hematocrit 26.3 % (37.5-50.1); Hemoglobin 7.9 g/dL (12.9-16.9); Mean Corpuscular Hemoglobin 31.1 pg (28.0-33.3); Mean Corpuscular Volume 103.5 fL (83.0-100.0); Mean Platelet Volume 9.7 fL (9.4-12.4); Platelet Count 184 K/mcL (140-400); Red Blood Count 2.54 M/mcL (4.19-5.50); Red Cell Distribution Width 17.9 % (11.5-14.5); White Blood Count 8.6 K/mcL (4.3-11.1)
[2021-07-21 07:20] LABS: Albumin 2.9 g/dL (3.5-5.7); Bilirubin,Total 2.3 mg/dL (0.3-1.0); Calcium 7.7 mg/dL (8.6-10.3); Total Protein 5.7 g/dL (6.4-8.9)
[2021-07-21 07:21] LABS: Globulin 2.8 g/dL (2.4-3.5)
[2021-07-21 08:47] LABS: Sodium, Urine 109.6 mEq/L
[2021-07-21] MEDS: cefTRIAXone 1,000 MG in 0.9 % Sodium Chloride Mini Bag 100 ML IVPB SCH (11:43)
[2021-07-21] MEDS: Azithromycin 500 MG in 0.9 % Sodium Chloride 250 ML IVPB SCH (11:48)
[2021-07-21 13:39] LABS: Hematocrit 31.3 % (37.5-50.1); Hemoglobin 9.2 g/dL (12.9-16.9)
[2021-07-22 01:19] LABS: Hematocrit 27.6 % (37.5-50.1); Hemoglobin 8.5 g/dL (12.9-16.9); Mean Corpuscular HGB Conc 30.8 g/dL (31.6-35.5); Mean Corpuscular Hemoglobin 30.9 pg (28.0-33.3); Mean Corpuscular Volume 100.4 fL (83.0-100.0); Mean Platelet Volume 9.4 fL (9.4-12.4); Platelet Count 191 K/mcL (140-400); Red Blood Count 2.75 M/mcL (4.19-5.50); Red Cell Distribution Width 17.1 % (11.5-14.5); White Blood Count 7.2 K/mcL (4.3-11.1)
[2021-07-22 01:37] LABS: Alanine Aminotransferase 30 Units/L (7-52); Albumin 2.9 g/dL (3.5-5.7); Alkaline Phosphatase 169 Units/L (34-104); Aspartate Amino Transferase 93 Units/L (13-39); BUN/Creatinine Ratio 15 (6-26); Bilirubin,Total 2.4 mg/dL (0.3-1.0); Blood Urea Nitrogen 21 mg/dL (8-23); Calcium 7.8 mg/dL (8.6-10.3); Carbon Dioxide 21 mEq/L (23-29); Chloride 110 mEq/L (98-107); Glucose 90 mg/dL (70-105); Osmolality,Calculated 291 (280-300); Potassium 4.1 mEq/L (3.5-5.1); Sodium 139 mEq/L (136-145); Total Protein 5.9 g/dL (6.4-8.9); eGFR For African Americans > 60 (> 60); eGFR For Non-African Americans 53 (> 60)
[2021-07-22] MEDS: Folic Acid 1 MG TABLET PO SCH (11:27)
[2021-07-22] MEDS: cefTRIAXone 1,000 MG in 0.9 % Sodium Chloride Mini Bag 100 ML IVPB SCH (11:27)
[2021-07-22] MEDS: Azithromycin 500 MG in 0.9 % Sodium Chloride 250 ML IVPB SCH (11:27)
[2021-07-22] MEDS: Iron Polysaccharide Complex 150 MG CAPSULE PO SCH (11:27)
[2021-07-22] MEDS: carvediloL 25 MG TABLET PO SCH ×2 (13:20→19:37)
[2021-07-22] MEDS: amLODIPine 5 MG TABLET PO SCH (13:21)
[2021-07-22] MEDS: Spironolactone 25 MG TABLET PO SCH (13:21)
[2021-07-23 07:42] LABS: Hematocrit 28.9 % (37.5-50.1); Hemoglobin 9.2 g/dL (12.9-16.9); Mean Corpuscular HGB Conc 31.8 g/dL (31.6-35.5); Mean Corpuscular Hemoglobin 31.8 pg (28.0-33.3); Mean Platelet Volume 9.3 fL (9.4-12.4); Platelet Count 177 K/mcL (140-400); Red Blood Count 2.89 M/mcL (4.19-5.50); Red Cell Distribution Width 16.4 % (11.5-14.5); White Blood Count 5.4 K/mcL (4.3-11.1)
[2021-07-23] MEDS: carvediloL 25 MG TABLET PO SCH ×2 (07:47→17:45)
[2021-07-23] MEDS: Folic Acid 1 MG TABLET PO SCH (07:48)
[2021-07-23] MEDS: amLODIPine 5 MG TABLET PO SCH (07:48)
[2021-07-23] MEDS: Spironolactone 25 MG TABLET PO SCH (07:48)
[2021-07-23] MEDS: Furosemide 20 MG TABLET PO SCH (07:48)
[2021-07-23] MEDS: Iron Polysaccharide Complex 150 MG CAPSULE PO SCH (07:48)
[2021-07-23] MEDS: cefTRIAXone 1,000 MG in 0.9 % Sodium Chloride Mini Bag 100 ML IVPB SCH (07:48)
[2021-07-23 08:06] LABS: Alanine Aminotransferase 36 Units/L (7-52); Alkaline Phosphatase 247 Units/L (34-104); Aspartate Amino Transferase 79 Units/L (13-39); BUN/Creatinine Ratio 13 (6-26); Bilirubin,Total 2.2 mg/dL (0.3-1.0); Blood Urea Nitrogen 17 mg/dL (8-23); Calcium 8.1 mg/dL (8.6-10.3); Carbon Dioxide 24 mEq/L (23-29); Chloride 107 mEq/L (98-107); Glucose 174 mg/dL (70-105); Osmolality,Calculated 292 (280-300); Sodium 138 mEq/L (136-145); eGFR For African Americans > 60 (> 60); eGFR For Non-African Americans 55 (> 60)
[2021-07-24 02:03] LABS: Hematocrit 29.9 % (37.5-50.1); Hemoglobin 9.4 g/dL (12.9-16.9); Mean Corpuscular HGB Conc 31.4 g/dL (31.6-35.5); Mean Corpuscular Hemoglobin 30.8 pg (28.0-33.3); Mean Platelet Volume 10.1 fL (9.4-12.4); Platelet Count 187 K/mcL (140-400); Red Blood Count 3.05 M/mcL (4.19-5.50); Red Cell Distribution Width 16.2 % (11.5-14.5); White Blood Count 7.6 K/mcL (4.3-11.1)
[2021-07-24 02:18] LABS: Albumin/Globulin Ratio 0.9 (1.1-2.2); Bilirubin,Total 1.8 mg/dL (0.3-1.0); Calcium 8.1 mg/dL (8.6-10.3); Globulin 3.3 g/dL (2.4-3.5); Potassium 4.3 mEq/L (3.5-5.1); Total Protein 6.3 g/dL (6.4-8.9)
[2021-07-24] MEDS: Folic Acid 1 MG TABLET PO SCH (09:03)
[2021-07-24] MEDS: amLODIPine 5 MG TABLET PO SCH (09:03)
[2021-07-24] MEDS: Furosemide 20 MG TABLET PO SCH (09:03)
[2021-07-24] MEDS: carvediloL 25 MG TABLET PO SCH ×2 (09:03→16:24)
[2021-07-24] MEDS: Iron Polysaccharide Complex 150 MG CAPSULE PO SCH (09:03)
[2021-07-24] MEDS: Spironolactone 25 MG TABLET PO SCH (09:03)
[2021-07-25 07:44] LABS: Hematocrit 32.5 % (37.5-50.1); Hemoglobin 10.3 g/dL (12.9-16.9); Mean Corpuscular HGB Conc 31.7 g/dL (31.6-35.5); Mean Corpuscular Hemoglobin 31.7 pg (28.0-33.3); Mean Platelet Volume 10.1 fL (9.4-12.4); Platelet Count 209 K/mcL (140-400); Red Blood Count 3.25 M/mcL (4.19-5.50); Red Cell Distribution Width 16.2 % (11.5-14.5); White Blood Count 7.6 K/mcL (4.3-11.1)
[2021-07-25 07:59] LABS: Albumin 3.4 g/dL (3.5-5.7); Bilirubin,Total 1.9 mg/dL (0.3-1.0); Calcium 8.5 mg/dL (8.6-10.3); Globulin 3.3 g/dL (2.4-3.5); Potassium 4.2 mEq/L (3.5-5.1); Total Protein 6.7 g/dL (6.4-8.9)
[2021-07-25] MEDS: amLODIPine 5 MG TABLET PO SCH (09:25)
[2021-07-25] MEDS: Spironolactone 25 MG TABLET PO SCH (09:25)
[2021-07-25] MEDS: Furosemide 20 MG TABLET PO SCH (09:25)
[2021-07-25] MEDS: Iron Polysaccharide Complex 150 MG CAPSULE PO SCH (09:26)
[2021-07-25] MEDS: Folic Acid 1 MG TABLET PO SCH (09:26)
[2021-07-25] MEDS: carvediloL 25 MG TABLET PO SCH ×2 (09:26→16:54)
[2021-07-26] MEDS: Folic Acid 1 MG TABLET PO SCH (08:42)
[2021-07-26] MEDS: amLODIPine 5 MG TABLET PO SCH (08:42)
[2021-07-26] MEDS: Iron Polysaccharide Complex 150 MG CAPSULE PO SCH (08:42)
[2021-07-26] MEDS: carvediloL 25 MG TABLET PO SCH ×2 (08:43→18:04)
[2021-07-26] MEDS: Furosemide 20 MG TABLET PO SCH (08:43)
[2021-07-26] MEDS: Spironolactone 25 MG TABLET PO SCH (08:43)
[2021-07-26] MEDS: Aspirin 325 MG TABLET PO SCH (12:13)
[2021-07-27] MEDS: Furosemide 20 MG TABLET PO SCH (07:42)
[2021-07-27] MEDS: carvediloL 25 MG TABLET PO SCH (07:43)
[2021-07-27] MEDS: amLODIPine 5 MG TABLET PO SCH (07:43)
[2021-07-27] MEDS: Iron Polysaccharide Complex 150 MG CAPSULE PO SCH (07:43)
[2021-07-27] MEDS: Aspirin 325 MG TABLET PO SCH (07:43)
[2021-07-27] MEDS: Spironolactone 25 MG TABLET PO SCH (07:43)
[2021-07-27] MEDS: Folic Acid 1 MG TABLET PO SCH (07:43)
[2021-07-27 10:52] VITALS: BP 111/72; PULSE 67; TEMP 98.1; O2SAT 94
[2021-07-27] MEDS ORDERED: FLU Vac QV 21-22 (6Month+)/PF 0.5 ML SYRINGE IM ONE (12:35)
== END 2021-07-27 15:33 | disposition home health service (06) | DRG 720 ==
LOC: EMEROOARM 19:17 → 3NENU 19:17 → SUATTDRO 07-20 04:19 → 3NENU 07-20 04:45 → SUATTDRO 07-20 12:59 → 2ANU 07-21 11:09
PROVIDERS: ADMIT Internal Medicine; ATTEND Hospitalist

== ENCOUNTER 2021-10-11 13:32 | Observation (INO) ==
[2021-10-11] MEDS ORDERED: Ketorolac 30 MG/ML VIAL IVP ONE (14:17)
[2021-10-11] MEDS ORDERED: *HR* HYDROmorphone (PF) 1 MG/ML SYRINGE IVP ONE (16:47)
[2021-10-11] MEDS ORDERED: Melatonin 3 MG TABLET PO PRN (17:53)
[2021-10-11] MEDS ORDERED: Naloxone 0.4 MG/ML INJ IVP PRN (17:53)
[2021-10-11] MEDS ORDERED: Ondansetron 4 MG/2 ML VIAL IVP PRN (17:53)
[2021-10-11] MEDS ORDERED: *HR* HYDROcodone/Acet 5/325 mg TABLET PO PRN (17:53)
[2021-10-11] MEDS ORDERED: Ibuprofen 400 MG TABLET PO PRN (17:53)
[2021-10-11] MEDS ORDERED: *HR* LORazepam 2 MG/ML VIAL IVP PRN ×3 (17:55)
[2021-10-11] MEDS ORDERED: amLODIPine 5 MG TABLET PO SCH (18:00)
[2021-10-11] MEDS ORDERED: Thiamine (B-1) 100 MG, Folic Acid 1 MG, MVI, adult with vitamin K 10 ML in 0.9 % Sodi... IVPB SCH (18:00)
[2021-10-11 18:38] LABS: Influenza A PCR Negative (Negative); Influenza B PCR Negative (Negative); Resp. Syncytial Virus PCR Negative (Negative); SARS-CoV-2 by PCR (In House) Negative (Negative)
[2021-10-11 19:18] VITALS: O2SAT 95
[2021-10-11 20:01] LABS: INR 1.2; Prothrombin Time 13.9 Seconds (9.4-12.1)
[2021-10-11 20:04] LABS: Activated Partial Thrombo Time 30.7 Seconds (26.0-36.0)
[2021-10-11] MEDS: *HR* OxyCODONE Immed Rel 5 MG TABLET PO PRN (20:07)
[2021-10-11 20:10] LABS: BUN/Creatinine Ratio 10 (6-26); Blood Urea Nitrogen 12 mg/dL (8-23); Calcium 8.4 mg/dL (8.6-10.3); Carbon Dioxide 24 mEq/L (23-29); Chloride 109 mEq/L (98-107); Glucose 154 mg/dL (70-105); Osmolality,Calculated 293 (280-300); Potassium 3.6 mEq/L (3.5-5.1); Sodium 140 mEq/L (136-145); eGFR For African Americans > 60 (> 60); eGFR For Non-African Americans 59 (> 60)
[2021-10-11] MEDS ORDERED: carvediloL 25 MG TABLET PO SCH (21:00)
[2021-10-11 22:42] LABS: Basophils # 0.1 K/mcL (0.0-0.2); Basophils % 0.8 %; Mean Corpuscular Volume 86.6 fL (83.0-100.0); Mean Platelet Volume 10.9 fL (9.4-12.4); Red Cell Distribution Width 14.5 % (11.5-14.5); White Blood Count 6.6 K/mcL (4.3-11.1)
[2021-10-11 22:44] LABS: Eosinophils # 0.2 K/mcL (0.0-0.6); Eosinophils % 3.3 %; Hematocrit 36.9 % (37.5-50.1); Hemoglobin 12.1 g/dL (12.9-16.9); Immature Granulocytes % 3.3 % (0-4); Immature Platelets 3.3 % (1.1-6.1); Lymphocytes # 1.9 K/mcL (0.6-4.6); Lymphocytes % 28.7 %; Mean Corpuscular HGB Conc 32.8 g/dL (31.6-35.5); Mean Corpuscular Hemoglobin 28.4 pg (28.0-33.3); Monocytes # 0.5 K/mcL (0.0-1.3); Neutrophils # 3.7 K/mcL (1.6-8.9); Nucleated Red Blood Cells 2.1 /100 WBC (0); Red Blood Count 4.26 M/mcL (4.19-5.50); Segmented Neutrophils % 55.9 %
[2021-10-11 23:11] LABS: Platelet Count 96 K/mcL (140-400)
[2021-10-11 23:16] LABS: Platelet Estimate Decreased (Normal)
[2021-10-11 23:35] VITALS: BP 151/80; PULSE 60; TEMP 98
[2021-10-12] MEDS: *HR* OxyCODONE Immed Rel 5 MG TABLET PO PRN (02:04)
== END 2021-10-12 02:30 | disposition short-term general hospital (02) ==
LOC: 4WAOSI 13:32 → EMEROOARM 13:32 → 4WAOSI 18:34
PROVIDERS: ADMIT Hospitalist; ATTEND Hospitalist